=== PATIENT | female | born 1990 | race Caucasian/White ===

== ENCOUNTER 2024-07-18 11:11 | Emergency (ER) | payer BC, SELFPAY ==
[2024-07-18 11:22] VITALS: BP 131/90
--- NOTE | 2024-07-18 12:23 | ED.MUSCINJ ---
HPI-Injury
General
Chief Complaint: Musculo-Skeletal Complaint
Source: patient
Exam Limitations: none
Time Seen by Provider: 07/18/24 12:13
History of Present Illness-Injury
Initial Injury comments:
34-year-old female presents complaining of left knee pain starting 2 days ago. She fell onto her left knee onto concrete or stone. She complains of significant pain to the anterior medial aspect of the knee. The pain is made worse with bending
her knee. No prior knee injury. No other complaints at this time
Past History
Past History
ED Past Medical History: Asthma, GERD, Hyperthyroidism (graves disease), Psychiatric (Anxiety, depression, ADHD), Other (fabian's syndrome.) and Other (She did have pyelonephritis in 2014)
ED Past Surgical History: Tonsilectomy
Patient has exhibited threatening behavior?: No
PSI?: No
Social History
Tobacco: Former smoker
Alcohol: Occasional
Drug: None
Personal: Single
Living: with family
Employment: Student (Nursing school)
Family History
Family History: Other (Noncontributory); Negative Early CAD or CAD
Phy Exam
Physical Exam
Physical Exam:
General: Well-appearing female no acute respiratory distress
Musculoskeletal exam: Left knee is with ecchymosis noted anteriorly. She is tender anteriorly and medially. There is no deformity. No obvious effusion. Able to straight leg raise against gravity. MCL stable to exam. LCL stable to exam. No
obvious ligamentous instability
Skin is intact without laceration
Injury Course
Orders/Labs/Results
Orders:
Orders
07/18/24 11:24
Knee, Left 4 or More Views [CR Knee - Left 4 Or More View*] Urgent
Comment:
Reason For Exam: fell on left knee on thursday limited rom
07/18/24 12:21
Knee Immobilizer Left-Treatmen ONCE
Ibuprofen [Motrin] 600 mg PO NOW STA
MDM/Problems Addressed
Differential Diagnosis Includes:
X-rays of the left knee were obtained to evaluate for fracture versus dislocation. The x-rays were negative for bony abnormality. Suspect deep contusion. Mechanism of injury would not support ligament injury. Will provide knee immobilizer and
recommend anti-inflammatories. Recommend follow-up with orthopedics
*Critical Care Note
Total Time (30-74mins, 75-104mins- exclusive of procedures): Not Applicable
ED Attending Note
-
Portions of this chart may have been created with voice recognition software.� Occasional wrong word or��sound alike� substitutions may have occurred due to the inherent limitations of voice recognition software.
Discharge Plan
Departure
Patient Disposition: Home (Routine Discharge)
Date of Disposition: 07/18/24
Time of Disposition: 12:25
Patient with high blood pressure during this ER visit?: No
Discharge Problem:
Contusion
Instructions: Contusion (DC)
Prescriptions:
No Action
clonazepam 1 MG tablet
0.5 - 1 mg PO HS
famotidine 20 MG tablet
20 mg PO BID
dextroamphetamine-amphetamine [Adderall] 5 MG tablet
15 mg PO DAILYPRN PRN (Reason: as directed)
citalopram 20 MG tablet
20 mg PO DAILY
gabapentin 300 MG capsule
300 mg PO HS
ciprofloxacin HCl 250 MG tablet
250 mg PO BID Qty: 10 0RF
Referrals:
Raul Bernard MD [Active] -
Stand Alone Forms: Return to Work
Interventions
Interventions:
*Risk Screen - Suicide Last Done: 07/18/24 11:22
*General Assessment Last Done: 07/18/24 11:52
*Neglect/Abuse Screening Last Done: 07/18/24 11:22
*ED COVID-19 Vaccine History Last Done: 07/18/24 11:52
ED-Musculoskeletal Assessment Last Done: 07/18/24 11:53
Discharge Date and Time
Print Language: [id number]
[2024-07-18] MEDS: MOTRIN 600 MG PO (12:53)
[2024-07-18 13:05] VITALS: BP 119/82
[2024-07-18 13:06] VITALS: BP 119/82
== END 2024-07-18 13:07 | disposition home or self-care (01) ==
LOC: EMR 11:11
PROVIDERS: EMERGENCY PHYSICIAN Emergency Medicine; FAMILY PHYSICIAN Nurse Practitioner Adult Health
DX: S80.02XA Contusion of left knee, initial encounter (principal); W18.39XA Other fall on same level, initial encounter; J45.909 Unspecified asthma, uncomplicated; F41.9 Anxiety disorder, unspecified; F32.A Depression, unspecified; F90.9 Attention-deficit hyperactivity disorder, unspecified type; K21.9 Gastro-esophageal reflux disease without esophagitis; E05.00 Thyrotoxicosis with diffuse goiter without thyrotoxic crisis or storm; E24.9 Cushing's syndrome, unspecified; Z87.891 Personal history of nicotine dependence
CPT/HCPCS: 99283; 29505; 73564

== ENCOUNTER → 2024-08-17 10:35 | Outpatient (REF) | payer BC, SELFPAY | LOC: PAVMRI 10:35 | PROVIDERS: ATTENDING PHYSICIAN Anesthesiology; FAMILY PHYSICIAN Nurse Practitioner Adult Health | DX: M25.562 Pain in left knee (principal) | CPT/HCPCS: 73721 ==